=== PATIENT | female | born 1995 | race Caucasian/White ===

== ENCOUNTER 2018-09-10 20:14 | Emergency (ER) | payer OTHER ==
[~2018-09-10] VITALS: Ht 152.4 cm; Wt 72.6 kg
[2018-09-10 20:20] VITALS: BP 134/75
--- NOTE | 2018-09-10 20:22 | NUR ---
TO LOBBY A/W BED , AMBULATORY
--- NOTE | 2018-09-10 20:43 | NUR ---
PT AMBULATED TO BED 4
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
--- NOTE | 2018-09-10 22:13 | NUR ---
Patient being evaluated by Dr. Meadows at bedside.
--- NOTE | 2018-09-10 22:20 | NUR ---
Patient discharged with v/s stable. Written and verbal after care instructions given and explained. Patient verbalized understanding. Ambulatory with steady gait. All questions addressed prior to discharge. Advised to follow up with PMD.
== END 2018-09-10 22:20 | disposition home or self-care (01) ==
LOC: MED 20:14
DX: S81.852A Open bite, left lower leg, initial encounter (principal); W54.0XXA Bitten by dog, initial encounter; Y93.89 Activity, other specified; Y92.89 Other specified places as the place of occurrence of the external cause; Y99.8 Other external cause status
CPT/HCPCS: 99282; 99283